=== PATIENT | male | born 1970 | race Caucasian/White ===

== ENCOUNTER 2025-04-25 07:09 | Day surgery (SDC) | payer OTHER, SELFPAY ==
[2025-04-25] VITALS (8 sets, daily range): BP systolic 97–114; BP diastolic 78–82; PULSE 71–84; RESP 16; TEMP 36.3–36.7; O2SAT 94–97; BMI 31.8
--- NOTE | 2025-04-25 07:37 | PCM.HP.STD ---
[facility] - General General Date of Admission: 04/25/25 Date of Service: 04/25/25 Chief Complaint: Screening colonoscopy HPI Narrative NITIN WOODS, is a 54 M who presents today for screening colonoscopy. Patient has had no previous colonoscopy. He does have a family history of multiple members who have had colon polyps. He himself denies any recent GI symptoms such as blood in his stools. No black or tarry stools. No significant constipation or diarrhea PFSH Medical History Screening for colon cancer Migraine headache Gastric reflux Non-smoker Home Medications ?Medication ?Instructions ?Recorded ?Last Taken ?Type loratadine 10 mg tablet (Claritin) 10 mg PO DAILY 01/08/23 04/23/25 History multivitamin (Daily Multi-Vitamin 1 tab PO DAILY 01/08/23 04/23/25 History tablet) omeprazole 20 mg capsule,delayed 20 mg PO DAILY 01/08/23 04/23/25 History release ascorbic acid (vitamin C) 1,000 mg 1,000 mg PO DAILY 04/19/25 04/23/25 History tablet,extended release (C Complex) Allergy/AdvReac Type Severity Reaction Status Date / Time No Known Allergies Allergy Verified 04/25/25 07:31 Surgical History (Updated 04/19/25 @ 14:59 by Taty Chopra) No history of previous surgery Social History Smoking Status: Never smoker ROS Constitutional Constitutional: Reports systems reviewed and no addt'l complaints, except as documented Eyes Eyes: Reports systems reviewed and no addt'l complaints, except as documented ENT HEENT: Reports systems reviewed and no addt'l complaints, except as documented Cardiovascular Cardiovascular: Reports systems reviewed and no addt'l complaints, except as documented Respiratory/Chest Respiratory/Chest: Reports systems reviewed and no addt'l complaints, except as documented Gastrointestinal Gastrointestinal: Reports systems reviewed and no addt'l complaints, except as documented Genitourinary Genitourinary: Reports systems reviewed and no addt'l complaints, except as documented Musculoskeletal Musculoskeletal: Reports systems reviewed and no addt'l complaints, except as documented Integumentary Integumentary: Reports systems reviewed and no addt'l complaints, except as documented Vital Signs Vital Signs Vital Signs: 04/25/25 07:32 04/25/25 07:33 Temperature 98.0 F Temperature Source Temporal Pulse Rate 71 Respiratory Rate 16 Respiratory Pattern Normal Blood Pressure 114/81 H Blood Pressure Mean 92 Blood Pressure Source Monitor Blood Pressure Position Semi-Fowlers Blood Pressure Location Left Arm Pulse Ox 96 Oxygen Delivery Method Room Air Weight Weight: 228 lb Body Mass Index (BMI) 31.8 Physical Exam Const alert, oriented x3 and no apparent distress Assessment & Plan Assessment/Plan (1) Screening for colon cancer: PLAN: Plan The patient is a 54-year-old male with a family history of colon polyps. Patient has had no prior colonoscopy. We discussed the details of the planned procedure as well as risks benefits and alternatives. He wishes to proceed. This will begin this morning
[2025-04-25] MEDS: Lactated Ringers 1,000 ML 15 ML IV (07:47)
--- NOTE | 2025-04-25 08:12 | PCM.PRE.AN2 ---
ASA Classification* ASA Classification ASA Classification: 2 Assessment & Plan Anesthesia* Anesthesia Assessment Anesthesia Assessment: Discussed sedation and/or anesthesia options, risks, benefits, and alternatives with patient/parents/legal guardian/POA. Questions invited. The patient/parents/legal guardian/POA seems to understand and agrees to proceed with anesthesia plan. Reviewed the physical assessment, medical history, allergy history and patient home medications list prior to surgery/procedure/anesthetic and documented any changes. Performed airway and anesthesia risk assessments. Anesthesia Type Anesthesia Type: MAC History Source History Obtained from:: Patient and Chart Anesthesia Focused Assessment* Temperature: 98.0 F Pulse Rate: 71 Blood Pressure: 114/81 Respiratory Rate: 16 Pulse Ox: 96 Oxygen Delivery Method: Room Air Airway Assessment Mouth opens: >3 cm Mallampati Score: IV Teeth Condition: Missing (Right lower molar missing. Rest of the teeth are tight.) Neck Range of motion (ROM): Full ROM Labs Anesthesia Preop lab: CBC WBC 8.2 K/mm3 (4.4-11.0) 07/26/24 07:07/26/24 RBC 4.93 M/mm3 (4.6-6.2) 07/26/24 07:26 07/26/24 Hgb 14.5 g/dL (13.0-16.5) 07/26/24 07:26 07/26/24 Hct 43.6 % (40-54) 07/26/24 07:26 07/26/24 Plt Count 305 K/mm3 (150-450) 07/26/24 07:26 07/26/24 CHEMISTRY Potassium 4.0 mmol/L (3.5-5.1) 07/26/24 07:26 07/26/24 Sodium 139 mmol/L (136-145) 07/26/24 07:26 07/26/24 Phosphorus 3.1 mg/dL (2.5-4.9) 07/26/24 07:07/26/24 BUN 17 mg/dL (7-18) 07/26/24 07:26 07/26/24 Creatinine 1.10 mg/dL (0.70-1.30) 07/26/24 07:07/26/24 Glucose 108 mg/dL (74-106) H 07/26/24 07:26 07/26/24 COAG Pre-Assessment Diagnosis/Proposed Procedure Planned Operative Procedure(s): COLONOSCOPY Anesthesia History Anesthesia History - cryogenics repairer: Anesthesia History - cryogenics repairer Hx Hospitalization No 04/19/25 14:55 Any Problems With Anesthesia No 04/19/25 14:55 Cholinesterase deficiency No 04/19/25 14:55 You/Your Family Experience No 04/19/25 14:55 fever (hyperthermia) with Relationship Recent Exposure to Contagious No 04/25/25 07:32 Disease Does patient have nerve No 04/19/25 14:55 stimulator Patient instructed to have device shut off --Does patient have Pacemaker No 04/25/25 07:33 or ICD? When Was Last Pacemaker Check QUESTION #4 FULL TEXT: You/Your Family Experience fever (hyperthermia) with Anesthesia Last Oral Intake Last Oral intake: Last Oral Intake NPO since 22:00 04/25/25 07:33 Meds taken in AM with sips of No 04/25/25 07:33 water? Meds patient instructed to take am of surgery PONV PONV - cryogenics repairer: PONV - cryogenics repairer Female No 04/19/25 14:55 HX of Motion Sickness No 04/19/25 14:55 HX of N/V After Surgery No 04/19/25 14:55 Non-Smoker Yes 04/19/25 14:55 Duration of Surgery greater No 04/19/25 14:55 than 60 minutes Number of Risk Factors 1 04/19/25 14:55 PONV Score Low Risk 04/19/25 14:55 Height & Weight Height & Weight: Anesthesia: Height & Weight Height 5 ft 11 in 04/25/25 07:33 Weight: 103.419 kg 04/25/25 07:33 Body Mass Index (BMI) 31.8 04/25/25 07:33 Respiratory Assessment Respiratory Assessment - cryogenics repairer: Respiratory Tract Infection Hx - cryogenics repairer Hx Respiratory Tract Infection No 04/19/25 14:55 STOP Sleep Apnea STOP Sleep Apnea - cryogenics repairer: STOP Sleep Apnea - cryogenics repairer Hx Hypertension No 04/19/25 14:55 Hx Sleep Apnea No 04/19/25 14:55 CPAP BIPAP Do you snore loudly (louder No 04/19/25 14:55 than talking or can be heard Do you often feel tired/ No 04/19/25 14:55 fatigued/ sleepy during daytime? Has anyone observed you stop No 04/19/25 14:55 breathing during sleep? STOP Results Negative 04/19/25 14:55 QUESTION #5 FULL TEXT : Do you snore loudly (louder than talking or can be heard through closed doors)? Tobacco Use History Tobacco Use History - cryogenics repairer: Tobacco Use History - cryogenics repairer Tobacco Use Smoking Status Never smoker 04/19/25 14:55 Hx Tobacco Use No 04/19/25 14:55 Years Smoking Packs Smoked per Day Smoking Cessation Date was within the last 15 years Hx Smoking Cessation Date Hx Smoking Cessation Counseling Hematologic Medial History Hematologic Hx - cryogenics repairer: Hematologic Medical Hx - race relations adviser Hx of Blood Transfusion No 04/19/25 14:55 Hx of Transfusion in last 3 No 04/19/25 14:55 Months Date of Last Transfusion (if within last 3 months) Ever experience any problems No 04/19/25 14:55 with transfusion(s)? Specify any problems Hx of Preganancy in last 3 N/A 04/19/25 14:55 Months Nurse Filling Out Transfusion [facility] 04/19/25 14:55 & Questions: Date: 04/19/25 04/19/25 14:55 Time: 15:00 04/19/25 14:55 Patient unable to answer at this time (ie. confused, unrespo /Reproduction History /Reproductive History - cryogenics repairer: /Reproductive Hx- cryogenics repairer Hx Now No 04/19/25 14:55 Gestational Age (in weeks): EDC: Hx Hx Para Hx Section SAB No 04/19/25 14:55 Active Medications Active Medications: Current Medications Generic Name Dose Route Start Last Admin Trade Name Freq PRN Reason Stop Dose Admin Lactated Ringer's 1,000 mls @ 15 mls/hr 04/25/25 07:30 04/25/25 07:47 IV 15 mls/hr .Q48H ALESHA Administration PFSH Medical History Screening for colon cancer Migraine headache Gastric reflux Non-smoker Home Medications ?Medication ?Instructions ?Recorded ?Last Taken ?Type loratadine 10 mg tablet (Claritin) 10 mg PO DAILY 01/08/23 04/23/25 History multivitamin (Daily Multi-Vitamin 1 tab PO DAILY 01/08/23 04/23/25 History tablet) omeprazole 20 mg capsule,delayed 20 mg PO DAILY 01/08/23 04/23/25 History release ascorbic acid (vitamin C) 1,000 mg 1,000 mg PO DAILY 04/19/25 04/23/25 History tablet,extended release (C Complex) Allergy/AdvReac Type Severity Reaction Status Date / Time No Known Allergies Allergy Verified 04/25/25 07:31 Surgical History No history of previous surgery Social History Smoking Status: Never smoker Review of Systems (Anesthesia) ROS Narrative System reviewed and no additional complaints, except as documented.
--- NOTE | 2025-04-25 09:08 | OP.CCLET_ITS ---
04/25/2025 Jass Donato Re : Colonoscopy procedure for Hiren Herrerar Forrest This procedure was performed on Friday, April 25, 2025. My impressions and recommendations are as follows: Impressions : - Hemorrhoids. - The entire examined colon is normal on direct and retroflexion views. - The examination was otherwise normal on direct and retroflexion views. - No specimens collected. Recommendations : - Discharge patient to home (ambulatory). - High fiber diet. - Repeat colonoscopy in 7 years for screening purposes. - Return to my office PRN. - Continue present medications. My findings are described in the full procedure note, which is enclosed. If I can be of further assistance, please feel free to contact me at . Sincerely, Aamir Astorga MD 04/25/2025 9:08:08 AM This report has been signed electronically.
--- NOTE | 2025-04-25 09:08 | OP.COLON_ITS ---
Patient Name: Hiren Clark Procedure Date: 04/25/2025 8:30 AM Date of : 1970 Age: 54 Procedure: Colonoscopy Indications: Colon cancer screening in patient at increased risk: Family history of 1st-degree relative with colon polyps Providers: Aamir Astorga MD Referring MD: Jass Donato Medicines: Monitored Anesthesia Care Patient Profile: Refer to note in patient chart for documentation of history and physical. Last Colonoscopy: none. The patient's first colonoscopy is today. Complications: No immediate complications. Estimated blood loss: None. Procedure: Pre-Anesthesia Assessment: - Prior to the procedure, a History and Physical was performed, and patient medications and allergies were reviewed. The patient's tolerance of previous anesthesia was also reviewed. The risks and benefits of the procedure and the sedation options and risks were discussed with the patient. All questions were answered, and informed consent was obtained. Prior Anticoagulants: The patient has taken no anticoagulant or antiplatelet agents. ASA Grade Assessment: II - A patient with mild systemic disease. After reviewing the risks and benefits, the patient was deemed in satisfactory condition to undergo the procedure. After I obtained informed consent, the scope was passed under direct vision. Throughout the procedure, the patient's blood pressure, pulse, and oxygen saturations were monitored continuously. The adult colonoscope was introduced through the anus and advanced to the cecum, identified by appendiceal orifice and ileocecal valve. The ileocecal valve, appendiceal orifice, and rectum were photographed. The entire colon was well visualized. The colonoscopy was somewhat difficult due to significant looping. Successful completion of the procedure was aided by applying abdominal pressure. The patient tolerated the procedure well. The quality of the bowel preparation was adequate. Moderate Sedation: See the other procedure note for documentation of moderate sedation with intraservice time. Scope In: 8:36:32 AM Scope Withdrawal Time 0 hours 6 minutes 23 seconds Scope Out: 9:03:02 AM Total Procedure Duration Time 0 hours 26 minutes 30 seconds Findings: The perianal and digital rectal examinations were normal. Hemorrhoids were found during retroflexion. The hemorrhoids were mild. The entire examined colon appeared normal on direct and retroflexion views. The exam was otherwise without abnormality on direct and retroflexion views. Impression: - Hemorrhoids. - The entire examined colon is normal on direct and retroflexion views. - The examination was otherwise normal on direct and retroflexion views. - No specimens collected. Recommendation: - Discharge patient to home (ambulatory). - High fiber diet. - Repeat colonoscopy in 7 years for screening purposes. - Return to my office PRN. - Continue present medications. Procedure Code(s): --- Professional --- G0105, Colorectal cancer screening; colonoscopy on individual at high risk Diagnosis Code(s): --- Professional --- K64.9, Unspecified hemorrhoids Z83.71, Family history of colonic polyps CPT copyright 2021 [employer] [place] [employer]. All rights reserved. The codes documented in this report are preliminary and upon product technology scientist review may be revised to meet current compliance requirements. Aamir Astorga MD 04/25/2025 9:08:08 AM This report has been signed electronically. Number of Addenda: 0 Note Initiated On: 04/25/2025 8:30 AM
--- NOTE | 2025-04-25 09:17 | PCM.POST.ANE ---
Anesthesia: Postop Eval I Current Vital Signs Temperature: 97.3 F Pulse Rate: 83 Blood Pressure: 97/82 Respiratory Rate: 16 Pulse Ox: 95 Oxygen Delivery Method: Room Air Assessment Airway patent: Yes Spontaneous unlabored respirations: Yes Mental status: Asleep nausea: No Vomiting: No Anesthesia Complication: No Fluid Hydration Crystalloid volume administer (ml): 800 Total IV fluid infused: 800 Progress Note Anesthesia document: Postop Eval 1 completed: Yes
--- NOTE | 2025-04-25 14:52 | PCM.POSTANE2 ---
Anesthesia Postop Eval I Sum Postop Eval Completion status Anesthesia document: Postop Eval 1 completed: Yes Anesthesia Postop Eval I Summary Anesthesia Postop Eval I Summary: Anesthesia Postop Eval I: Assessment Summary Airway patent Yes 04/25/25 09:19 [email or web address] Spontaneous unlabored Yes 04/25/25 09:19 [email or web address] respirations Mental status Asleep 04/25/25 09:19 [email or web address] nausea No 04/25/25 09:19 [email or web address] Vomiting No 04/25/25 09:19 [email or web address] Anesthesia Postop Eval I: Fluid Summary Crystalloid volume administer 800 04/25/25 09:19 [email or web address] (ml) Colloids volume administered ( ml) Blood Product volume administered (ml) Total IV fluid infused 800 04/25/25 09:19 [email or web address] Anesthesia Postop Eval I: Summary Notes Anesthesia Complication No 04/25/25 09:19 [email or web address] Anesthesia Complication Comment: Post-operative progress note Anesthesia: Postop Eval II Evaluation Mental status: Awake and Calm Pain Level: 0 nausea: No Vomiting: No Complications Anesthesia Complication: No
== END 2025-04-25 09:58 | disposition home or self-care (01) ==
LOC: EN 07:10 → AC 07:12
PROVIDERS: PCP Nurse Practitioner Family; Referring Provider Nurse Practitioner Family; Visit Provider Surgery
PROC: 0DJD8ZZ Inspection of Lower Intestinal Tract, Via Natural or Artificial Opening Endoscopic (ICD-10-PCS; CPT 45378; principal; 2025-04-25 08:10)
DX: Z12.11 Encounter for screening for malignant neoplasm of colon (principal); K64.9 Unspecified hemorrhoids; K21.9 Gastro-esophageal reflux disease without esophagitis; Z79.899 Other long term (current) drug therapy; Z83.719 Family history of colon polyps, unspecified
CPT/HCPCS: 45378; J2405

== ENCOUNTER → 2025-08-02 | Outpatient (CLI) | payer OTHER, SELFPAY ==
[2025-08-02 08:51] LABS: PSA,Total - Annual Screen 0.93 ng/mL (0.02-4.00)
== END | disposition home or self-care (01) ==
LOC: LAB 07:11
PROVIDERS: PCP Nurse Practitioner Family; Referring Provider Nurse Practitioner Family; Visit Provider Nurse Practitioner Family
DX: Z00.00 Encounter for general adult medical examination without abnormal findings (principal); Z12.5 Encounter for screening for malignant neoplasm of prostate; R73.01 Impaired fasting glucose
CPT/HCPCS: 36415; 83036; 84153; 84439; 84443; G0103